=== PATIENT | female | born 2000 | race Caucasian/White ===

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

== ENCOUNTER 2025-10-23 17:37 | Emergency (ER) | payer BC, MEDICAID ==
[2025-10-23 18:04] LABS: Glucose, Urine (Dipstick) Negative (Negative); Leukocyte Negative (Negative); Protein, Urine (Dipstick) 30 mg/dL (Neg-Trace); Specific Gravity, Urine 1.015 (1.005-1.030)
[2025-10-23 18:15] LABS: Bacteria/HPF Rare-Few HPF (None Seen); CAUTI Indications for Culture Pregnancy; Mucous/LPF 2+ LPF (<2+); RBC/HPF None Seen HPF (0-3); WBC/HPF 0-3 HPF (0-3)
[2025-10-23 18:16] LABS: Urine Culture Reflex Yes Yes
[2025-10-23] MEDS ORDERED: Ondansetron PF 4 MG/2 ML Vial ONE (18:45)
[2025-10-23 19:04] LABS: #Basophils 0.0 thou/uL (0.0-0.2); #Eosinophils 0.0 thou/uL (0.0-0.7); #Lymphocytes 0.3 thou/uL (1.20-3.40); #Monocytes 0.3 thou/uL (0.11-0.59); #Neutrophils 4.0 thou/uL (1.40-6.50); %Basophils 1.0 % (0.0-1.0); %Eosinophils 0.1 % (0.0-10.0); %Lymphocytes 6.4 % (21.0-51.0); %Monocytes 7.0 % (0.0-10.0); %Neutrophils 85.5 % (42.0-75.0); Hematocrit 33.5 % (36.0-47.0); Hemoglobin 10.9 g/dL (12.0-16.0); Mean Corpuscular Hemoglobin 29.9 pg (27.0-31.0); Mean Corpuscular Volume 91.8 fl (78.0-98.0); Platelet Count 117 10x3/uL (130-400); Red Blood Cell (RBC) Count 3.65 mill/uL (4.20-5.40); White Blood Cell (WBC) Count 4.7 10x3/uL (4.8-10.8)
[2025-10-23 19:16] LABS: Platelet Adequacy Comment Platelets Decreased
[2025-10-23 19:17] LABS: ALT (SGPT) 34 U/L (Less than 34); AST (SGOT) 35 U/L (11-34); Albumin 3.0 g/dL (3.1-4.5); Alkaline Phosphatase 53 U/L (40-110); Anion Gap 17 mmol/L (10-20); BUN (Urea Nitrogen) 7 mg/dL (7.0-18.7); Bilirubin, Total 0.2 mg/dL (0.3-1.2); Calc. Creatinine Clearance 0 mL/min (70-130); Calcium 8.2 mg/dL (7.8-10.44); Carbon Dioxide 18 mmol/L (22-29); Chloride 103 mmol/L (98-107); Globulin 2.8 g/dL (2.4-3.5); Glucose 81 mg/dL (70-105); Lipase 26 U/L (8-78); Potassium 3.5 mmol/L (3.5-5.1); Sodium 134 mmol/L (136-145)
[2025-10-23] MEDS ORDERED: Acetaminophen 500 MG TAB ONE (20:15)
[2025-10-23] MEDS ORDERED: Bacitracin 1 PK ONE (20:33)
[2025-10-23 21:03] LABS: Glucose, Urine (Dipstick) Negative (Negative); Leukocyte Negative (Negative); Protein, Urine (Dipstick) Negative (Neg-Trace); Specific Gravity, Urine 1.010 (1.005-1.030)
[2025-10-23 21:10] LABS: Bacteria/HPF 1+ HPF (None Seen); CAUTI Indications for Culture Pelvic or flank pain; RBC/HPF 0-3 HPF (0-3); Urine Culture Reflex No No; WBC/HPF 0-3 HPF (0-3)
[2025-10-23] MEDS ORDERED: Oseltamivir 75 MG CAP ONE (21:25)
== END 2025-10-23 21:28 | disposition short-term general hospital (02) ==
LOC: MADERS 17:37
DX: O26.52 Maternal hypotension syndrome, second trimester (principal); O99.891 Other specified diseases and conditions complicating pregnancy; E86.0 Dehydration; J10.1 Influenza due to other identified influenza virus with other respiratory manifestations; M54.50 Low back pain, unspecified; E03.9 Hypothyroidism, unspecified; Z79.890 Hormone replacement therapy; Z3A.25 25 weeks gestation of pregnancy
CPT/HCPCS: 36415; 80053; 81001; 83605; 83690; 85025; 87040; 87081; 87086; 87428; 87430; 96361; 96365; 96375; J0692; J2405; J7030